=== PATIENT | male | born 1955 | race Caucasian/White ===

== ENCOUNTER → 2020-07-18 | Outpatient (REF) | payer MEDICARE ==
[~2020-07-18] MED LIST: ACTO45TA12 PO; D31000TA2 PO; DOCU100C16 PO; ENAL5TA PO; GLIP5TAB20 PO; LOVA40TA PO; METF10004 PO; NITR100C2; PERCOCET PO
--- NOTE | 2020-08-16 14:23 | REPPI ---
TRANSRECTAL PROSTATE ULTRASOUND WITH ULTRASOUND GUIDANCE FOR BIOPSY HISTORY: Elevated prostate-specific antigen. TECHNIQUE: Real-time sonographic evaluation of prostate performed utilizing transrectal probe. FINDINGS: Size of the gland is 4.1 x 3.3 x 4.4 cm for a total volume of 31.2 mL. Small cysts and calcifications are noted with no evidence of peripheral zone mass. Seminal vesicles are symmetrical. Ultrasound guidance was provided for Dr. Sal who performed ultrasound- guided biopsy of the prostate. [facility]
== END ==
LOC: M LAB REF 14:02
PROVIDERS: ATTEND Urology
DX: C61 Malignant neoplasm of prostate (principal); D29.1 Benign neoplasm of prostate; R97.20 Elevated prostate specific antigen [PSA]
CPT/HCPCS: 55700; 76872; 76942; G0416; G0463

== ENCOUNTER → 2020-08-03 | Outpatient (CLI) | payer MEDICARE | LOC: M LABSMTC 12:01 | PROVIDERS: ATTEND Anesthesiology | DX: Z01.812 Encounter for preprocedural laboratory examination (principal); Z20.828 Contact with and (suspected) exposure to other viral communicable diseases | CPT/HCPCS: C9803; U0003 ==

== ENCOUNTER 2020-08-08 11:11 | Inpatient (IN) | payer MEDICARE ==
[~2020-08-08] VITALS: Ht 182.9 cm; Wt 125.6 kg
[~2020-08-08 11:11] MED LIST changes: -DOCU100C16 PO; +HEPARIN SOD (PORCINE) 5000UNITS/ML 1ML VIAL/SYRINGE SQ ONE; +LIDOCAINE 1% MDV 20ML VIAL SQ PRN; +LR 1,000 ML IV ONE; +MIDAZOLAM INJ 2MG/2ML VIAL (J2250 PER 1MG) As Ordered ONE; -NITR100C2; -PERCOCET PO; +ceFAZolin SOD 2 GM in IV 1 EA IV ONE; +fentaNYL 250 MCG/5 ML INJECTION (J3010) As Ordered ONE
[2020-08-08] MEDS ORDERED: ceFAZolin 2 GM/D5W 50 ML IV BAG (J0690 PER 500MG) As Ordered ONE (11:50)
[2020-08-08] MEDS ORDERED: LIDOCAINE 1% SDV 30ML VIAL As Ordered ONE (11:59)
[2020-08-08] MEDS ORDERED: BUPIVACAINE HCL 0.25% 30ML VIAL As Ordered ONE (12:00)
[2020-08-08] MEDS ORDERED: NITR100C2 (12:26)
[2020-08-08] MEDS ORDERED: GLUCOSE 4GM CHEW TABLET PO PRN (12:30)
[2020-08-08] MEDS ORDERED: DEXTROSE 50% 50 ML SYRINGE IV PRN (12:30)
[2020-08-08] MEDS ORDERED: GLUCAGON INJ 1MG VIAL SC PRN (12:30)
[2020-08-08] MEDS ORDERED: PERCOCET 5MG/325MG TAB PO PRN ×2 (12:30)
[2020-08-08] MEDS ORDERED: MORPHINE 2 MG/ML 1ML VIAL (J2270) IV PRN (12:30)
[2020-08-08] MEDS ORDERED: ONDANSETRON 4MG/2ML VIAL IV PRN ×3 (12:30→20:00)
[2020-08-08] MEDS ORDERED: ACETAMINOPHEN TAB 650MG DOSE (2X325MG) PO PRN (12:30)
[2020-08-08] MEDS ORDERED: NS 1,000 ML IV SCH (12:30)
[2020-08-08] MEDS ORDERED: VECURONIUM BROMIDE 10MG VIAL As Ordered ONE (12:57)
[2020-08-08] MEDS ORDERED: GLYCOPYRROLATE INJ 0.2 MG/ML 2 ML VIAL As Ordered ONE (13:04)
[2020-08-08] MEDS ORDERED: dexameTHASONE 4 MG/ML 1ML VIAL (J1100 PER 1MG) As Ordered ONE (13:16)
[2020-08-08] MEDS ORDERED: ONDANSETRON 4MG/2ML VIAL As Ordered ONE (13:16)
[2020-08-08] MEDS ORDERED: METOCLOPRAMIDE INJ 10MG/2ML VIAL (J2765 PER 1) As Ordered ONE (13:16)
[2020-08-08] MEDS ORDERED: ACETAMINOPHEN 1000MG 100ML IV BTL (OFIRMEV) (J0131 PER 10MG) As Ordered ONE (13:16)
[2020-08-08] MEDS ORDERED: HYDROmorphone HCL 2 MG/ML 1ML VIAL (J1170) As Ordered ONE (13:47)
[2020-08-08] MEDS ORDERED: SUGAMMADEX SODIUM 500 MG/5 ML VIAL (BRIDION) As Ordered ONE (13:48)
[2020-08-08] MEDS: HumaLOG INSULIN (NovoLOG) PER UNIT SC SCH (17:30)
--- NOTE | 2020-08-08 18:32 | ROOPDOC ---
[facility] Report Of Operation Report of Operation DATE OF PROCEDURE: 08/08/20 PREPROCEDURE DIAGNOSES: Prostate Cancer. POSTPROCEDURE DIAGNOSES: Prostate Cancer. PROCEDURE: Robotic-assisted Laparoscopic Radical Prostatectomy with Bilateral Pelvic Lymph Node Dissection. SURGEON: Mallory Thompson MD CRIMINAL INVESTIGATOR CUSTOMS: Annabelle Ngo NP ANESTHESIA: General. OPERATIVE INDICATIONS: This is a 65 year old male with intermediate risk clinical T1c [place] 4+3 prostate cancer, here today for the above procedure for treatment. DESCRIPTION OF PROCEDURE: The patient was brought to the operating room and general anesthesia was induced. Prophylactic antibiotics were infused. He was then placed in the supine position and prepped and draped in the usual sterile fashion. At this point, a Reyes catheter was inserted into the bladder and the balloon was filled with 10 mL of sterile water. We then made a midline incision just above the umbilicus for an 8 mm port. A Veress needle was utilized to achieve pneumoperitoneum. Next, an 8 mm port was inserted into the incision and subsequently a camera was inserted. There were no injuries from the Veress needle or initial trocar placement. Then three robotic ports were placed in the usual configuration in line just below the level of the umbilicus. A 12 mm patient observation assistant port was placed just lateral and at the level of the umbilicus. Once all the ports were placed, the robot was docked. Lysis of adhesions between the sigmoid colon and abdominal wall was then performed. Next, the bladder was then released from the anterior abdominal wall using electrocautery. Once the bladder was dropped, the fat overlying the prostate was cleared using electrocautery. The superficial dorsal vein was controlled with electrocautery. The endopelvic fascia was opened on both sides and the dorsal venous complex was cleared. Next, a #0 Vicryl [id number] stitch was placed around the dorsal venous complex. Once that was done, the bladder was opened and dissected away from the prostate. At this point, the prostate was lifted up. The vasa deferentia were identified in the midline. They were controlled with electrocautery and then transected. The seminal vesicles were also dissected off bilaterally. After carefully dissectin g the prostate off the rectum using cold scissors, and ligating and transecting the pedicles, the prostate was only connected by the urethra. At this point, the dorsal venous complex was transected with electrocautery. The urethra was then opened and the catheter was withdrawn and the posterior urethra was transected, thus freeing the prostate. At this point, we checked for hemostasis and it did appear very good. Next, we performed bilateral pelvic lymph node dissection. This was done in a standard fashion. The limits of dissection were the iliac vein proximally, the obturator nerve distally, the pelvic sidewall laterally, and the bladder medially. All lymphatic tissue within these limits was removed. I performed the same procedure on both the right and left sides. Hemostasis was then obtained. The lymphatic packets were then placed in separate Endo Catch bags for future retrieval. Once hemostasis was confirmed, I then moved on to perform the vesicourethral anastomosis. The vesicourethral anastomosis was performed in running fashion using a Quill stitch. Once this was done, the final #20-G[place] Reyes catheter was placed. The balloon was filled with 15 mL of sterile water. Upon completion of the vesicourethral anastomosis, it was tested by filling the bladder with sterile water. The anastomosis appeared to be watertight. At this point, the prostate and seminal vesicles were placed in an Endo Catch bag for future retrieval. The robot was then undocked. A Waldo fascial closure device was utilized to place a #0 Vicryl suture between the fascia of the 12 mm patient observation assistant port. At this point, a Benrardo- Burger drain was brought in through the left robotic port skin site and the drain was positioned anterior to the bladder. The drain was secured to the skin with #2-0 Ethilon suture. Next, all the remaining ports were removed and there did not appear to be any bleeding from any of the port sites. The prostate, as well as the lymphatic packets were then extracted from the camera port site after the skin was extended. The fascia in this incision was then closed with a running #0 Vicryl stitch. The previously placed #0 Vicryl free ties through the patient observation assistant port were then tied down and all incisions were irrigated. Last, all of the incisions were closed with running subcuticular #4-0 Monocryl sutures. Local anesthesia was applied. Dermabond was then applied to the incisions. Thi s marked the conclusion of the procedure. The patient was then awakened from anesthesia and transported to the recovery room in stable condition. ESTIMATED BLOOD LOSS: 175 mL. COMPLICATIONS: None. SPECIMENS: Prostate and seminal vesicles, right pelvic lymph nodes, left pelvic lymph nodes. PLAN: The patient will be admitted to the hospital postoperatively, and he will likely be discharged home within the next 1-2 days. MALLORY THOMPSON MD Aug 08, 2020 18:32
[2020-08-08] MEDS ORDERED: oxyCODONE 5MG TAB PO PRN ×2 (19:00→20:00)
[2020-08-08] MEDS ORDERED: METOCLOPRAMIDE INJ 10MG/2ML VIAL (J2765 PER 1) IV PRN ×2 (19:00→20:00)
[2020-08-08] MEDS ORDERED: LR 1,000 ML IV SCH ×2 (19:00→20:00)
[2020-08-08] MEDS ORDERED: HYDROMORPHONE HCL 0.5 MG/ 0.5 ML SYRINGE (J1170 PER 1) IV PRN ×2 (19:00→20:00)
[2020-08-08] MEDS ORDERED: fentaNYL 100 MCG/2 ML INJECTION (J3010) IV PRN ×2 (19:00→20:00)
[2020-08-08 19:21] LABS: BLOOD UREA NITROGEN 17 MG/DL (7-18); CALCIUM LEVEL 8.8 MG/DL (8.8-10.2); CARBON DIOXIDE LEVEL 22 MEQ/L (21-32); CHLORIDE LEVEL 106 MEQ/L (98-107); CREATININE FOR GFR 1.25 MG/DL (0.70-1.30); GLOMERULAR FILTRATION RATE > 60.0 (>49); GLUCOSE, FASTING 191 MG/DL (70-100); HEMOGLOBIN 14.5 g/dl (13.5-17.5); MEAN CORPUSCULAR HEMOGLOBIN 31.7 pg (27.0-33.0); MEAN CORPUSCULAR VOLUME 96.3 fl (80.0-96.0); PLATELET COUNT, AUTOMATED 256 10^3/uL (150-450); POTASSIUM SERUM 4.5 MEQ/L (3.5-5.1); RED BLOOD COUNT 4.57 10^6/uL (4.30-6.10); SODIUM LEVEL 139 MEQ/L (136-145); WHITE BLOOD COUNT 10.6 10^3/uL (4.0-10.0)
[2020-08-08 19:50] VITALS: BP 154/90
[2020-08-08 20:20] VITALS: BP 131/76
[2020-08-08 20:50] VITALS: BP 127/72
[2020-08-08] MEDS ORDERED: HumaLOG INSULIN (NovoLOG) PER UNIT SC SCH (21:00)
[2020-08-08] MEDS: ceFAZolin SOD 1 GM in D5W MINI-BAG PLUS 50 ML IV SCH (21:45)
[2020-08-08] MEDS: HEPARIN SOD (PORCINE) 5000UNITS/ML 1ML VIAL/SYRINGE SC SCH (21:45)
[2020-08-08] MEDS: DOCUSATE SODIUM 100 MG CAP PO SCH (21:45)
[2020-08-08 22:00] VITALS: BP 124/96
[2020-08-08 23:00] VITALS: BP 121/70
[2020-08-09] VITALS (7 sets, daily range): BP systolic 110–132; BP diastolic 63–79
[2020-08-09] MEDS: HEPARIN SOD (PORCINE) 5000UNITS/ML 1ML VIAL/SYRINGE SC SCH ×2 (05:52→15:56)
[2020-08-09] MEDS: ceFAZolin SOD 1 GM in D5W MINI-BAG PLUS 50 ML IV SCH (05:52)
[2020-08-09 06:17] LABS: MEAN CORPUSCULAR HEMOGLOBIN 31.5 pg (27.0-33.0); MEAN CORPUSCULAR HGB CONC 33.2 g/dl (32.0-36.5); MEAN CORPUSCULAR VOLUME 94.9 fl (80.0-96.0); PLATELET COUNT, AUTOMATED 201 10^3/uL (150-450); WHITE BLOOD COUNT 8.6 10^3/uL (4.0-10.0)
[2020-08-09 06:22] LABS: HEMOGLOBIN 12.3 g/dl (13.5-17.5)
[2020-08-09 06:37] LABS: BLOOD UREA NITROGEN 17 MG/DL (7-18); CALCIUM LEVEL 8.1 MG/DL (8.8-10.2); CARBON DIOXIDE LEVEL 26 MEQ/L (21-32); CHLORIDE LEVEL 106 MEQ/L (98-107); CREATININE FOR GFR 0.95 MG/DL (0.70-1.30); GLOMERULAR FILTRATION RATE > 60.0 (>49); GLUCOSE, FASTING 131 MG/DL (70-100); POTASSIUM SERUM 4.5 MEQ/L (3.5-5.1); SODIUM LEVEL 139 MEQ/L (136-145)
[2020-08-09] MEDS: HumaLOG INSULIN (NovoLOG) PER UNIT SC SCH ×4 (07:30→17:22)
--- NOTE | 2020-08-09 07:46 | IPNPDOC ---
Subjective Review oF Systems Chief Complaint The patient is a 65-year-old male admitted with a reason for visit of Prostate Cancer. Events since Last Encounter No acute events. Patient notes minimal to no pain. No n/v. Has not ambulated yet. Tolerating clears. No f/c/ns. Objective Physical Examination General Exam: Alert, Cooperative, No Acute Distress ABDOMEN EXAM: Soft, Tenderness (minimal), Other (nondistended; incisions clean/dry/intact; MYLES w/ serosanguinous output) Skin Exam: Nl turgor and temperature Neuro Exam: Normal Speech Psych Exam: Mental status NL, Mood NL Other physical findings catheter draining denae colored urine Vital Signs/I&O Vital Signs Date Time Temp Pulse Resp B/P (MAP) Pulse Ox O2 Delivery O2 Flow Rate FiO2 08/09/20 06:00 98.0 68 20 110/73 (85) 95 Room Air 08/08/20 18:30 2.5 I&O- Last 24 Hours up to 6 AM 08/09/20 05:59 Intake Total 1190 ml Output Total 730 ml Balance 460 ml Laboratory Data Labs 24H Laboratory Tests 2 08/08/20 18:49: Nucleated Red Blood Cells % (auto) 0.0, Anion Gap 11, Glomerular Filtration Rate > 60.0, Calcium Level 8.8 08/09/20 05:26: Nucleated Red Blood Cells % (auto) 0.0, Anion Gap 7L, Glomerular Filtration Rate > 60.0, Calcium Level 8.1L CBC/BMP Laboratory Tests 08/08/20 18:49 08/09/20 05:26 Assessment/Plan Date Seen The patient was seen on 08/09/20. Patient Summary This is a 65 y/o M POD1 s/p RALP w/ BPLND. HB 12.3. Cr 1. Good UOP. Minimal MYLES output. Plan/VTE VTE Prophylaxis Ordered?: Yes VTE Exclusion Mechanical Proph: N/A:VTE Prophy Ordered VTE Exclusion Pharmacological: N/A:VTE Prophy Ordered Plan/Urinary Catheter Urinary Catheter: Other Catheter: (catheter to stay in for at least 7 days for healing of the vesicourethral anastomosis) Plan - d/c IVF - continue home meds - percocet prn pain - ambulate - SCDs when in bed - SQH - incentive spirometry - advance diet as tolerated - possible discharge home later today w/ catheter MALLORY THOMPSON MD Aug 09, 2020 07:46
[2020-08-09] MEDS: DOCUSATE SODIUM 100 MG CAP PO SCH (08:17)
[2020-08-09] MEDS ORDERED: ENALAPRIL MALEATE 5 MG TAB PO SCH (09:00)
[2020-08-09] MEDS ORDERED: PERCOCET PO (16:24)
[2020-08-09] MEDS ORDERED: DOCU100C16 PO (16:24)
--- NOTE | 2020-08-21 11:38 | DS ---
DATE OF ADMISSION: 08/08/2020 DATE OF DISCHARGE: 08/09/2020 ADMISSION DIAGNOSIS: Prostate cancer. DISCHARGE DIAGNOSIS: Prostate cancer. ADMITTING PHYSICIAN: Jorge Sal MD DISCHARGING PHYSICIAN: Jorge Sal MD PROCEDURE PERFORMED: Robotic assisted laparoscopic radical prostatectomy with bilateral pelvic lymph node dissection on 08/08/2020. HISTORY OF PRESENT ILLNESS: This is a 65-year-old male with prostate cancer who underwent the above listed procedure for treatment. He was admitted to the hospital postoperatively. HOSPITALIZATION COURSE: The patient was admitted to the hospital after undergoing the above listed procedure on 08/08/2020. His postoperative course was unremarkable. On postoperative day #1, all of his labs were within normal limits. Specifically, his hemoglobin level was 12.3. His serum creatinine level was 0.95. He had excellent pain control and required no pain medications while in the hospital. He ambulated well. His diet was advanced throughout the day and he was tolerating a regular diet. He had excellent urine output through his catheter and normal output from his Bernardo-Burger drain. By the afternoon of postoperative day #1, he was deemed ready for discharge home. His Bernardo- Burger drain was removed. He was discharged home with his catheter in place with the plan for him to followup in the urology clinic in approximately 1 week for catheter removal and to discuss his pathology results. JACQUI
== END 2020-08-09 17:29 | disposition home or self-care (01) | DRG 714 ==
LOC: M OR 11:11 → M MSPAV 19:50
PROVIDERS: ADMIT Urology; ATTEND Urology
PROC: 07BC4ZX Excision of Pelvis Lymphatic, Percutaneous Endoscopic Approach, Diagnostic (ICD-10-PCS; 2020-08-08)
PROC: 8E0W8CZ Robotic Assisted Procedure of Trunk Region, Via Natural or Artificial Opening Endoscopic (ICD-10-PCS; 2020-08-08)
PROC: 0VT08ZZ Resection of Prostate, Via Natural or Artificial Opening Endoscopic (ICD-10-PCS; principal; 2020-08-08 13:00)
DX: C61 Malignant neoplasm of prostate (principal)

== ENCOUNTER 2022-02-19 13:40 | Outpatient (RCR) | payer MEDICARE | END 2022-03-16 | LOC: M ONCR 13:40 | PROVIDERS: ATTEND General Practice | DX: Z79.899 Other long term (current) drug therapy (principal) ==

== ENCOUNTER → 2022-02-19 | Outpatient (CLI) | payer MEDICARE ==
[~2022-02-19] MED LIST changes: +ACTO30TA15 PO; +BICA50TA9 PO; -D31000TA2 PO; +DOCU100C16 PO; -HEPARIN SOD (PORCINE) 5000UNITS/ML 1ML VIAL/SYRINGE SQ ONE; -LIDOCAINE 1% MDV 20ML VIAL SQ PRN; -LR 1,000 ML IV ONE; -MIDAZOLAM INJ 2MG/2ML VIAL (J2250 PER 1MG) As Ordered ONE; +NITR100C2; +PERCOCET PO; +VITA100093 PO; -ceFAZolin SOD 2 GM in IV 1 EA IV ONE; -fentaNYL 250 MCG/5 ML INJECTION (J3010) As Ordered ONE
[2022-02-19 14:33] LABS: PROSTATIC SPECIFIC AG MONITOR 0.05 NG/ML (< 4.00)
== END ==
LOC: M ONCR 12:51
PROVIDERS: ATTEND General Practice
DX: C61 Malignant neoplasm of prostate (principal); R97.21 Rising PSA following treatment for malignant neoplasm of prostate; Z80.49 Family history of malignant neoplasm of other genital organs; Z80.8 Family history of malignant neoplasm of other organs or systems
CPT/HCPCS: 36415; 84153; 84403; G0463

== ENCOUNTER → 2022-06-06 | Outpatient (CLI) | payer MEDICARE | LOC: M ONCR 10:33 | PROVIDERS: ATTEND General Practice | DX: Z08 Encounter for follow-up examination after completed treatment for malignant neoplasm (principal); Z85.46 Personal history of malignant neoplasm of prostate; Z79.899 Other long term (current) drug therapy; Z79.84 Long term (current) use of oral hypoglycemic drugs ==